=== PATIENT | male | born 1975 | race Caucasian/White ===

== ENCOUNTER 2017-01-24 19:04 | Emergency (ER) | payer OTHER ==
[2017-01-24] MEDS ORDERED: HYDROcodone/Acetaminophen 10/325 mg Tablet ONE (19:32)
[2017-01-24] MEDS ORDERED: Ketorolac Tromethamine 60 MG/2 ML VIAL ONE (19:33)
[2017-01-24] MEDS ORDERED: Colchicine 0.6 MG TAB ONE (19:33)
[2017-01-24] MEDS ORDERED: Dexamethasone 4 MG TAB ONE (19:33)
== END 2017-01-24 20:03 | disposition home or self-care (01) ==
LOC: MADERS 19:04
DX: M10.9 Gout, unspecified (principal); E11.9 Type 2 diabetes mellitus without complications; F43.10 Post-traumatic stress disorder, unspecified; Z87.891 Personal history of nicotine dependence
CPT/HCPCS: 96372; J1885; J8540

== ENCOUNTER 2017-02-16 23:16 | Emergency (ER) | payer OTHER | END 2017-02-16 23:56 | disposition left against medical advice (07) | LOC: MADERS 23:16 | DX: Z53.21 Procedure and treatment not carried out due to patient leaving prior to being seen by health care provider (principal) ==

== ENCOUNTER 2017-02-17 10:20 | Emergency (ER) | payer OTHER ==
[2017-02-17] MEDS ORDERED: Morphine 10 MG/ML VIAL ONE (11:11)
--- NOTE | 2017-02-17 11:17 | RAD ---
RIGHT HAND THREE VIEWS: History: 21-year-old male with history of pain related to gout since January 24. Comparison: 05-31-14 FINDINGS: Deformity of the distal fifth metacarpal with arthrosis changes of the fifth metacarpal phalangeal j oint. Mild deformity of the distal second metacarpal and mild degenerative changes. There are some a rthrosis changes involving the wrist including the triscaphe region with some subtle areas of focal demineralization or subcortical erosive changes of the ulnar side of the scaphoid adjacent to the sc apholunate ligament and also the ulnar side of the triquetrum. No evidence of acute fracture or disl ocation. 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 Progressive arthrosis changes of the wrist, particularly the triscaphe region. Subtle subcortical areas of bony demineralization or minimal erosions involving the ulnar s kirsten of the scaphoid bone and triquetrum. The changes in the scaphoid bone are definitely stable from the prior study. No acute fracture or dislocation. POS: [facility]
[2017-02-17 11:18] LABS: #Basophils 0.1 thou/uL (0.0-0.2); #Eosinphils 0.1 thou/uL (0.0-0.7); #Lymphocytes 2.4 thou/uL (1.20-3.40); #Monocytes 0.8 thou/uL (0.11-0.59); #Neutrophils 5.6 thou/uL (1.40-6.50); %Basophils 1.2 % (0.0-1.0); %Eosinophils 0.6 % (0.0-10.0); %Lymphocytes 26.7 % (21.0-51.0); %Monocytes 9.1 % (0.0-10.0); %Neutrophils 62.5 % (42.0-75.0); Hemoglobin 16.4 g/dL (14.0-18.0); Mean Corpuscular HGB CONC 33.7 g/dL (32.0-36.0); Mean Corpuscular Hemoglobin 30.7 pg (27.0-31.0); Mean Platelet Volume 9.5 fL (7.4-10.4); Platelet Count 272 thou/uL (130-400); RBC Distribution Width 11.3 % (11.5-14.5); Red Blood Cell (RBC) Count 5.37 mill/uL (4.70-6.10)
[2017-02-17 11:35] LABS: Anion Gap 16 mmol/L (10-20); BUN (Urea Nitrogen) 14 mg/dL (8.9-20.6); Calc. Creatinine Clearance 0 mL/min (70-130); Calcium 10.3 mg/dL (7.8-10.44); Carbon Dioxide 29 mmol/L (22-29); Chloride 97 mmol/L (98-107); Estimated GFR-MDRD 69; Glucose 346 mg/dL (70-105); Potassium 4.2 mmol/L (3.5-5.1); Sodium 138 mmol/L (136-145)
== END 2017-02-17 12:20 | disposition home or self-care (01) ==
LOC: MADERS 10:20
DX: M19.031 Primary osteoarthritis, right wrist (principal); Z87.891 Personal history of nicotine dependence; E11.9 Type 2 diabetes mellitus without complications; M10.9 Gout, unspecified
CPT/HCPCS: 80048; 84550; 85025; 85652; 96374; J2270

== ENCOUNTER 2017-07-05 20:06 | Emergency (ER) | payer OTHER ==
[2017-07-05] MEDS ORDERED: Ketorolac Tromethamine 60 MG/2 ML VIAL ONE (20:49)
--- NOTE | 2017-07-05 21:01 | RAD ---
RIGHT FOOT THREE VIEWS: History: Foot pain. FINDINGS: Enthesophytes from both plantar and posterior calcaneus. Tarsals unremarkable. Mild degenerative spur ring in the intertarsal joints and tarsal metatarsal joints. Mild degenerative changes at the first M TP joint. Metatarsals and phalanges appear intact. IMPRESSION: There are degenerative changes as described. No fracture or acute abnormality identified. POS: [facility]
[2017-07-05 21:18] LABS: ALT (SGPT) 42 U/L (8-55); AST (SGOT) 21 U/L (5-34); Albumin 4.2 g/dL (3.5-5.0); Alkaline Phosphatase 114 U/L (40-150); Anion Gap 17 mmol/L (10-20); BUN (Urea Nitrogen) 16 mg/dL (8.9-20.6); Bilirubin, Total 0.5 mg/dL (0.2-1.2); Calc. Creatinine Clearance 0 mL/min (70-130); Calcium 10.2 mg/dL (7.8-10.44); Carbon Dioxide 28 mmol/L (22-29); Chloride 99 mmol/L (98-107); Estimated GFR-MDRD 73; Glucose 190 mg/dL (70-105); Potassium 3.9 mmol/L (3.5-5.1); Protein, Total 8.2 g/dL (6.0-8.3); Sodium 140 mmol/L (136-145)
[2017-07-05 21:19] LABS: #Basophils 0.1 thou/uL (0.0-0.2); #Eosinphils 0.1 thou/uL (0.0-0.7); #Lymphocytes 2.5 thou/uL (1.20-3.40); #Monocytes 0.6 thou/uL (0.11-0.59); #Neutrophils 4.8 thou/uL (1.40-6.50); %Basophils 1.3 % (0.0-1.0); %Lymphocytes 31.2 % (21.0-51.0); %Monocytes 7.9 % (0.0-10.0); %Neutrophils 58.6 % (42.0-75.0); Hemoglobin 15.6 g/dL (14.0-18.0); Mean Corpuscular HGB CONC 34.1 g/dL (32.0-36.0); Mean Corpuscular Hemoglobin 31.1 pg (27.0-31.0); Mean Corpuscular Volume 91.3 fl (80.0-94.0); Mean Platelet Volume 9.3 fL (7.4-10.4); Platelet Count 263 thou/uL (130-400); RBC Distribution Width 11.1 % (11.5-14.5); White Blood Cell (WBC) Count 8.1 thou/uL (4.8-10.8)
[2017-07-05] MEDS ORDERED: Colchicine 0.6 MG TAB ONE (21:37)
[2017-07-05] MEDS ORDERED: MORPHINE 10 MG/ML SYRINGE ONE (22:01)
== END 2017-07-05 22:20 | disposition home or self-care (01) ==
LOC: MADERS 20:06
DX: M10.9 Gout, unspecified (principal); F43.10 Post-traumatic stress disorder, unspecified; E11.9 Type 2 diabetes mellitus without complications; I10 Essential (primary) hypertension; Z87.891 Personal history of nicotine dependence
CPT/HCPCS: 36415; 80053; 85025; 85379; 96372; J1885; J2270

== ENCOUNTER 2018-05-20 17:25 | Emergency (ER) | payer OTHER | END 2018-05-20 17:50 | disposition left against medical advice (07) | LOC: MADERS 17:25 | DX: Z53.21 Procedure and treatment not carried out due to patient leaving prior to being seen by health care provider (principal) ==

== ENCOUNTER 2019-06-17 09:52 | Emergency (ER) | payer OTHER ==
[2019-06-17] MEDS ORDERED: Acetaminophen 500 MG TAB ONE (10:45)
[2019-06-17] MEDS ORDERED: Dexamethasone 10 MG/ML VIAL ONE (10:45)
[2019-06-17 11:09] LABS: #Basophils 0.1 thou/uL (0.0-0.2); #Eosinphils 0.1 thou/uL (0.0-0.7); #Lymphocytes 1.6 thou/uL (1.20-3.40); #Monocytes 0.7 thou/uL (0.11-0.59); %Basophils 0.9 % (0.0-1.0); %Eosinophils 0.9 % (0.0-10.0); %Lymphocytes 13.9 % (21.0-51.0); %Monocytes 5.7 % (0.0-10.0); %Neutrophils 78.7 % (42.0-75.0); Hemoglobin 16.2 g/dL (14.0-18.0); Mean Corpuscular HGB CONC 32.4 g/dL (32.0-36.0); Mean Corpuscular Hemoglobin 28.7 pg (27.0-31.0); Mean Corpuscular Volume 88.6 fL (78.0-98.0); Mean Platelet Volume 8.5 fL (7.4-10.4); Platelet Count 333 thou/uL (130-400); RBC Distribution Width 10.3 % (11.5-14.5); Red Blood Cell (RBC) Count 5.64 mill/uL (4.70-6.10); White Blood Cell (WBC) Count 11.5 thou/uL (4.8-10.8)
[2019-06-17] MEDS ORDERED: HYDROmorphone 0.5 MG/0.5 ML SYRINGE ONE (11:19)
[2019-06-17 11:22] LABS: Anion Gap 15 mmol/L (10-20); BUN (Urea Nitrogen) 11 mg/dL (8.9-20.6); CRP (Inflammatory) 3.2 mg/dL (= or < 0.5); Calc. Creatinine Clearance 0 mL/min (70-130); Calcium 9.7 mg/dL (7.8-10.44); Carbon Dioxide 25 mmol/L (22-29); Chloride 101 mmol/L (98-107); Estimated GFR-MDRD 79; Glucose 203 mg/dL (70-105); Sodium 137 mmol/L (136-145); Uric Acid 7.5 mg/dL (3.5-7.2)
== END 2019-06-17 12:30 | disposition home or self-care (01) ==
LOC: MADERS 09:52
DX: M10.9 Gout, unspecified (principal); I10 Essential (primary) hypertension; E11.9 Type 2 diabetes mellitus without complications; F43.10 Post-traumatic stress disorder, unspecified; Z87.891 Personal history of nicotine dependence
CPT/HCPCS: 80048; 84550; 85025; 86140; 96374; 96375; J1100; J1170

== ENCOUNTER 2020-08-04 16:07 | Emergency (ER) | payer OTHER ==
[2020-08-04] MEDS ORDERED: Clindamycin 150 MG CAP ONE (17:21)
== END 2020-08-04 17:55 | disposition home or self-care (01) ==
LOC: MADERS 16:07
DX: S90.852A Superficial foreign body, left foot, initial encounter (principal); N48.1 Balanitis; I10 Essential (primary) hypertension; E11.65 Type 2 diabetes mellitus with hyperglycemia; E78.5 Hyperlipidemia, unspecified; E78.00 Pure hypercholesterolemia, unspecified; M10.9 Gout, unspecified; Z87.891 Personal history of nicotine dependence; W22.8XXA Striking against or struck by other objects, initial encounter
CPT/HCPCS: 28190

== ENCOUNTER 2020-10-08 15:48 | Emergency (ER) | payer OTHER ==
[2020-10-08] MEDS ORDERED: Aspirin Chewable 81 MG TAB ONE (16:10)
[2020-10-08] MEDS ORDERED: Lorazepam 2 MG/ML VIAL ONE (16:10)
[2020-10-08 16:27] LABS: #Basophils 0.1 thou/uL (0.0-0.2); #Eosinphils 0.1 thou/uL (0.0-0.7); #Lymphocytes 4.2 thou/uL (1.20-3.40); #Monocytes 0.8 thou/uL (0.11-0.59); #Neutrophils 5.8 thou/uL (1.40-6.50); %Basophils 1.3 % (0.0-1.0); %Eosinophils 0.9 % (0.0-10.0); %Lymphocytes 37.8 % (21.0-51.0); %Monocytes 7.6 % (0.0-10.0); %Neutrophils 52.5 % (42.0-75.0); Hemoglobin 17.4 g/dL (14.0-18.0); Mean Corpuscular HGB CONC 32.5 g/dL (32.0-36.0); Mean Corpuscular Hemoglobin 29.1 pg (27.0-31.0); Mean Corpuscular Volume 89.6 fL (78.0-98.0); Mean Platelet Volume 10.3 fL (7.4-10.4); Platelet Count 384 thou/uL (130-400); RBC Distribution Width 10.8 % (11.5-14.5); Red Blood Cell (RBC) Count 5.97 mill/uL (4.70-6.10)
[2020-10-08 16:40] LABS: ALT (SGPT) 46 U/L (8-55); AST (SGOT) 20 U/L (5-34); Albumin 4.5 g/dL (3.5-5.0); Alkaline Phosphatase 115 U/L (40-110); Anion Gap 21 mmol/L (10-20); BUN (Urea Nitrogen) 11 mg/dL (8.9-20.6); Bilirubin, Total 0.7 mg/dL (0.2-1.2); Calc. Creatinine Clearance 0 mL/min (70-130); Calcium 9.9 mg/dL (7.8-10.44); Carbon Dioxide 19 mmol/L (22-29); Chloride 99 mmol/L (98-107); Globulin 3.5 g/dL (2.4-3.5); Glucose 301 mg/dL (70-105); Magnesium 1.9 mg/dL (1.6-2.6); Potassium 3.6 mmol/L (3.5-5.1); Sodium 135 mmol/L (136-145)
== END 2020-10-08 19:42 | disposition home or self-care (01) ==
LOC: MADERS 15:48
DX: F43.0 Acute stress reaction (principal); F41.9 Anxiety disorder, unspecified; R00.2 Palpitations; E78.5 Hyperlipidemia, unspecified; E78.00 Pure hypercholesterolemia, unspecified; I10 Essential (primary) hypertension; M10.9 Gout, unspecified; E11.9 Type 2 diabetes mellitus without complications; Z87.891 Personal history of nicotine dependence
CPT/HCPCS: 71045; 80053; 83735; 83880; 84443; 84484; 85025; 93005; 96374; J2060

== ENCOUNTER 2020-10-31 14:30 | Emergency (ER) | payer OTHER ==
[2020-10-31 15:01] LABS: #Basophils 0.2 thou/uL (0.0-0.2); #Eosinphils 0.1 thou/uL (0.0-0.7); #Monocytes 0.6 thou/uL (0.11-0.59); #Neutrophils 5.3 thou/uL (1.40-6.50); %Basophils 1.6 % (0.0-1.0); %Eosinophils 0.9 % (0.0-10.0); %Lymphocytes 39.8 % (21.0-51.0); %Monocytes 5.9 % (0.0-10.0); %Neutrophils 51.9 % (42.0-75.0); Hemoglobin 16.4 g/dL (14.0-18.0); Mean Corpuscular Hemoglobin 29.1 pg (27.0-31.0); Mean Corpuscular Volume 88.1 fL (78.0-98.0); Mean Platelet Volume 9.8 fL (7.4-10.4); Platelet Count 332 thou/uL (130-400); Red Blood Cell (RBC) Count 5.63 mill/uL (4.70-6.10); White Blood Cell (WBC) Count 10.1 thou/uL (4.8-10.8)
[2020-10-31 15:15] LABS: ALT (SGPT) 37 U/L (8-55); AST (SGOT) 22 U/L (5-34); Albumin 4.3 g/dL (3.5-5.0); Alkaline Phosphatase 100 U/L (40-110); Anion Gap 17 mmol/L (10-20); BUN (Urea Nitrogen) 15 mg/dL (8.9-20.6); Bilirubin, Total 0.6 mg/dL (0.2-1.2); Calc. Creatinine Clearance 0 mL/min (70-130); Calcium 9.9 mg/dL (7.8-10.44); Carbon Dioxide 21 mmol/L (22-29); Chloride 101 mmol/L (98-107); Globulin 3.6 g/dL (2.4-3.5); Glucose 172 mg/dL (70-105); Protein, Total 7.9 g/dL (6.0-8.3); Sodium 135 mmol/L (136-145)
[2020-10-31] MEDS ORDERED: Metoprolol Tartrate 50 MG TAB ONE (16:03)
== END 2020-10-31 16:20 | disposition home or self-care (01) ==
LOC: MADERS 14:30
DX: I47.1 Supraventricular tachycardia (principal); E11.9 Type 2 diabetes mellitus without complications; M10.9 Gout, unspecified; I10 Essential (primary) hypertension; E78.5 Hyperlipidemia, unspecified; E78.00 Pure hypercholesterolemia, unspecified; Z87.891 Personal history of nicotine dependence
CPT/HCPCS: 71045; 80053; 84484; 85025; 93005

== ENCOUNTER 2020-11-07 16:53 | Emergency (ER) | payer OTHER | END 2020-11-07 17:27 | disposition left against medical advice (07) | LOC: MADERS 16:53 | DX: Z53.21 Procedure and treatment not carried out due to patient leaving prior to being seen by health care provider (principal) ==